=== PATIENT | male | born 1950 | race Caucasian/White ===

== ENCOUNTER → 2022-07-05 | Outpatient (CLI) | payer OTHER ==
[2022-07-05 10:18] LABS: APPEARANCE,URINE CLEAR (CLEAR); BILIRUBIN,URINE NEGATIVE (NEGATIVE); GLUCOSE, URINE (UA) >=1000 mg/dL (NEGATIVE); KETONES,URINE NEGATIVE (NEGATIVE); LEUKOCYTE ESTERASE ,URINE SMALL (NEGATIVE); NITRATE,URINE POSITIVE (NEGATIVE); OCCULT BLOOD,URINE NEGATIVE (NEGATIVE); PROTEIN,URINE TRACE mg/dL (NEGATIVE); SPECIFIC GRAVITIY, URINE 1.028 (1.003-1.030); UROBILINOGEN,URINE <=1.0 mg/dL (<=1.0)
[2022-07-05 10:29] LABS: ALBUMIN 3.9 g/dL (3.4-5.0); CALCIUM, TOTAL 9.9 mg/dL (8.8-10.5); CREATININE 1.24 mg/dL (0.60-1.30); POTASSIUM 4.8 mmol/L (3.5-5.1); TOTAL PROTEIN, SERUM 7.7 g/dL (6.4-8.2)
[2022-07-05 11:34] LABS: BACTERIA,URINE Many /HPF (None Seen); RBC,URINE 0-2 /HPF (0-2)
== END | disposition home or self-care (01) ==
LOC: MSR 09:45
PROVIDERS: ATTEND Chiropractor
DX: I51.9 Heart disease, unspecified (principal); E11.9 Type 2 diabetes mellitus without complications
CPT/HCPCS: 80053; 81001; 87086; 87186; 93306